=== PATIENT | male | born 1985 | race Caucasian/White ===

== ENCOUNTER 2016-11-07 19:34 | Emergency (ER) | payer OTHER ==
[~2016-11-07] VITALS: Ht 180.3 cm; Wt 109.1 kg
[~2016-11-07 19:34] MED LIST: BACTRIM DS 8001 TAB PO; COLACE 100100 MG/CAP PO; PERCOCET 325 MG1 TA2 PO; WELLBUTRIN SR150 M1
[2016-11-07 19:35] VITALS: TEMP 97.7
[2016-11-07] MEDS ORDERED: BACTRIM DS 8001 TAB PO (19:52)
[2016-11-07 19:59] VITALS: BP 154/78; PULSE 92
== END 2016-11-07 20:00 | disposition home or self-care (01) ==
LOC: COL.ER 19:34
DX: L08.9 Local infection of the skin and subcutaneous tissue, unspecified (principal)

== ENCOUNTER 2016-11-09 17:47 | Emergency (ER) | payer OTHER ==
[~2016-11-09] VITALS: Ht 180.3 cm; Wt 109.1 kg
[2016-11-09 17:48] VITALS: BP 159/97; PULSE 94; TEMP 98.2
== END 2016-11-09 19:15 | disposition home or self-care (01) ==
LOC: COL.ER 17:47
DX: L03.011 Cellulitis of right finger (principal)

== ENCOUNTER 2017-05-18 17:43 | Emergency (ER) | payer OTHER ==
[~2017-05-18] VITALS: Ht 180.3 cm; Wt 109.1 kg
[2017-05-18 17:48] VITALS: BP 145/95; TEMP 98.9
[2017-05-18] MEDS ORDERED: WELLBUTRIN SR150 M1 PO (17:51)
[2017-05-18] MEDS ORDERED: ULTRAM 50MG TAB50 MG PO (17:52)
[2017-05-18] MEDS ORDERED: FLEXERIL 1010 MG/TAB PO (17:52)
[2017-05-18] MEDS ORDERED: VOLTAREN 50MG T50 MG PO (17:53)
[2017-05-18 18:56] VITALS: PULSE 94
== END 2017-05-18 18:56 | disposition home or self-care (01) ==
LOC: COL.ER 17:43
DX: F32.9 Major depressive disorder, single episode, unspecified (principal); F41.9 Anxiety disorder, unspecified; F17.200 Nicotine dependence, unspecified, uncomplicated; F12.10 Cannabis abuse, uncomplicated; Z98.890 Other specified postprocedural states

== ENCOUNTER → 2017-06-22 | Outpatient (CLI) | payer OTHER ==
[~2017-06-22] MED LIST changes: +FLEXERIL 1010 MG/TAB PO; +ULTRAM 50MG TAB50 MG PO; +VOLTAREN 50MG T50 MG PO; +WELLBUTRIN SR150 M1 PO
== END ==
LOC: MHCPAIN 12:45
DX: G89.29 Other chronic pain (principal); M47.817 Spondylosis without myelopathy or radiculopathy, lumbosacral region; M53.3 Sacrococcygeal disorders, not elsewhere classified
CPT/HCPCS: G0463

== ENCOUNTER → 2017-06-30 | Outpatient (CLI) | payer OTHER | LOC: MHCPAIN 11:21 | DX: M47.817 Spondylosis without myelopathy or radiculopathy, lumbosacral region (principal) ==

== ENCOUNTER → 2017-07-05 | Outpatient (CLI) | payer OTHER | LOC: MHCPAIN 14:27 | DX: G89.29 Other chronic pain (principal); M47.817 Spondylosis without myelopathy or radiculopathy, lumbosacral region; M53.3 Sacrococcygeal disorders, not elsewhere classified; F17.210 Nicotine dependence, cigarettes, uncomplicated | CPT/HCPCS: G0463 ==

== ENCOUNTER → 2017-07-28 | Outpatient (CLI) | payer OTHER | LOC: MHCPAIN 11:14 | DX: M47.817 Spondylosis without myelopathy or radiculopathy, lumbosacral region (principal) ==

== ENCOUNTER 2017-08-02 09:48 | Emergency (ER) | payer OTHER ==
[~2017-08-02] VITALS: Ht 180.3 cm; Wt 109.1 kg
[2017-08-02 10:01] VITALS: TEMP 98.1
[2017-08-02] MEDS ORDERED: FLEXERIL 1010 MG/TAB PO (11:29)
[2017-08-02 11:39] VITALS: BP 130/76; PULSE 72
== END 2017-08-02 11:40 | disposition home or self-care (01) ==
LOC: COL.ER 09:48
DX: G89.29 Other chronic pain (principal); M54.9 Dorsalgia, unspecified
CPT/HCPCS: J1885; J2360

== ENCOUNTER → 2017-08-03 | Outpatient (CLI) | payer OTHER | LOC: MHCPAIN 08:12 | DX: G89.29 Other chronic pain (principal); M47.817 Spondylosis without myelopathy or radiculopathy, lumbosacral region; M53.3 Sacrococcygeal disorders, not elsewhere classified; F17.210 Nicotine dependence, cigarettes, uncomplicated | CPT/HCPCS: G0463 ==

== ENCOUNTER → 2017-09-06 | Outpatient (CLI) | payer OTHER | LOC: MHCPAIN 15:04 | DX: G89.29 Other chronic pain (principal); M47.817 Spondylosis without myelopathy or radiculopathy, lumbosacral region; F17.210 Nicotine dependence, cigarettes, uncomplicated | CPT/HCPCS: G0463 ==

== ENCOUNTER 2017-09-23 11:11 | Emergency (ER) | payer OTHER ==
[~2017-09-23] VITALS: Ht 180.3 cm; Wt 109.1 kg
[2017-09-23 11:11] VITALS: BP 135/85; TEMP 98.8
[2017-09-23] MEDS ORDERED: PROZAC 20MG20 MG PO (11:14)
[2017-09-23] MEDS ORDERED: ZITHROMAX Z PA250 MG PO (12:13)
[2017-09-23 12:20] VITALS: PULSE 82
== END 2017-09-23 12:20 | disposition home or self-care (01) ==
LOC: COL.ER 11:11
DX: J06.9 Acute upper respiratory infection, unspecified (principal); F32.9 Major depressive disorder, single episode, unspecified; F17.210 Nicotine dependence, cigarettes, uncomplicated

== ENCOUNTER 2017-10-03 17:20 | Emergency (ER) | payer OTHER ==
[~2017-10-03] VITALS: Ht 180.3 cm; Wt 109.1 kg
[~2017-10-03 17:20] MED LIST changes: +PROZAC 20MG20 MG PO; +ZITHROMAX Z PA250 MG PO
[2017-10-03 17:30] VITALS: TEMP 98.6
[2017-10-03] MEDS ORDERED: ATARAX 10MG10 MG/TAB PO (18:25)
[2017-10-03] MEDS ORDERED: ZANAFLEX CAPSULE2 MG PO (19:18)
[2017-10-03 19:53] VITALS: BP 133/80; PULSE 82
== END 2017-10-03 20:08 | disposition home or self-care (01) ==
LOC: COL.ER 17:20
DX: G89.29 Other chronic pain (principal); M54.9 Dorsalgia, unspecified; F41.9 Anxiety disorder, unspecified; F32.9 Major depressive disorder, single episode, unspecified; F17.210 Nicotine dependence, cigarettes, uncomplicated
CPT/HCPCS: J1885; J2360

== ENCOUNTER → 2017-10-27 | Outpatient (CLI) | payer OTHER ==
[~2017-10-27] MED LIST changes: +ATARAX 10MG10 MG/TAB PO; +ZANAFLEX CAPSULE2 MG PO
== END ==
LOC: MHCPAIN 12:58
DX: M47.817 Spondylosis without myelopathy or radiculopathy, lumbosacral region (principal)
CPT/HCPCS: J1100; J2250; J3010

== ENCOUNTER 2017-11-02 17:48 | Emergency (ER) | payer OTHER ==
[~2017-11-02] VITALS: Ht 180.3 cm; Wt 111.4 kg
[2017-11-02 17:55] VITALS: BP 121/79; PULSE 94; TEMP 99.6
== END 2017-11-02 20:52 | disposition home or self-care (01) ==
LOC: COL.ER 17:48
DX: B35.6 Tinea cruris (principal)

== ENCOUNTER → 2017-11-25 | Outpatient (CLI) | payer OTHER | LOC: BHSO 12:41 | DX: F33.1 Major depressive disorder, recurrent, moderate (principal) ==

== ENCOUNTER → 2017-12-23 | Outpatient (CLI) | payer OTHER | LOC: BHSO 10:39 | DX: F41.1 Generalized anxiety disorder (principal) | CPT/HCPCS: G0463 ==

== ENCOUNTER → 2018-01-04 | Outpatient (CLI) | payer OTHER | LOC: MHCPAIN 09:53 | DX: G89.29 Other chronic pain (principal); M47.817 Spondylosis without myelopathy or radiculopathy, lumbosacral region; F17.210 Nicotine dependence, cigarettes, uncomplicated | CPT/HCPCS: G0463 ==

== ENCOUNTER → 2018-01-05 | Outpatient (CLI) | payer OTHER | LOC: MHCPAIN 09:50 | DX: M47.817 Spondylosis without myelopathy or radiculopathy, lumbosacral region (principal) | CPT/HCPCS: J1100; J2250; J2405; J3010 ==

== ENCOUNTER → 2018-02-09 | Outpatient (CLI) | payer OTHER | LOC: BHSO 10:06 | DX: F40.10 Social phobia, unspecified (principal) | CPT/HCPCS: G0463 ==

== ENCOUNTER 2018-12-18 11:45 | Emergency (ER) | payer MEDICAID ==
[~2018-12-18] VITALS: Ht 180.3 cm; Wt 109.1 kg
[2018-12-18 11:50] VITALS: BP 131/81; TEMP 98.9
[2018-12-18] MEDS ORDERED: AMOXICILLIN 8751 TAB PO (12:09)
[2018-12-18] MEDS ORDERED: DOXYCYCLINE 10100 MG PO (12:09)
[2018-12-18 12:26] VITALS: PULSE 72
== END 2018-12-18 12:28 | disposition home or self-care (01) ==
LOC: COL.ER 11:45
DX: L05.91 Pilonidal cyst without abscess (principal); F17.210 Nicotine dependence, cigarettes, uncomplicated

== ENCOUNTER 2019-05-13 14:57 | Emergency (ER) | payer SELFPAY ==
[~2019-05-13] VITALS: Ht 180.3 cm; Wt 104.5 kg
[~2019-05-13 14:57] MED LIST changes: +AMOXICILLIN 8751 TAB PO; +DOXYCYCLINE 10100 MG PO
[2019-05-13 15:05] VITALS: PULSE 113; TEMP 98.5
[2019-05-13] MEDS ORDERED: AMOXICILLIN 8751 TAB PO (16:29)
[2019-05-13] MEDS ORDERED: ILOTYCIN5 MG/GM OS (16:29)
[2019-05-13 16:39] VITALS: BP 119/82
== END 2019-05-13 16:40 | disposition home or self-care (01) ==
LOC: COL.ER 14:57
DX: H66.91 Otitis media, unspecified, right ear (principal); H10.9 Unspecified conjunctivitis; F17.210 Nicotine dependence, cigarettes, uncomplicated; F12.90 Cannabis use, unspecified, uncomplicated

== ENCOUNTER 2021-03-17 20:48 | Emergency (ER) | payer OTHER ==
[~2021-03-17] VITALS: Ht 177.8 cm; Wt 90.9 kg
[~2021-03-17 20:48] MED LIST changes: +ILOTYCIN5 MG/GM OS
[2021-03-17] MEDS ORDERED: NORCO 325 MG-51 TAB PO (22:49)
[2021-03-17] MEDS ORDERED: ANUSOL-HC SUPPO25 MG RC (22:49)
[2021-03-17 23:32] VITALS: BP 127/63; PULSE 74; TEMP 98.2
== END 2021-03-17 23:33 | disposition home or self-care (01) ==
LOC: COL.ER 20:48
DX: K64.9 Unspecified hemorrhoids (principal); Z88.6 Allergy status to analgesic agent
CPT/HCPCS: J1885; J2405